=== PATIENT | male | born 2000 | race Hispanic/Latino ===

== ENCOUNTER 2022-01-22 00:37 | Emergency (ER) | payer SELFPAY ==
[2022-01-22 01:28] LABS: Absolute Lymphocytes (CBC) 1.9 K/uL (0.7-4.9); Hematocrit 44.5 % (39.6-49.0); Lymphocytes % 15.2 % (15.3-44.8); MPV 9.2 fL (7.6-11.3)
[2022-01-22 01:43] LABS: Albumin 4.8 g/dL (3.4-5.0); Bilirubin Total 0.4 mg/dL (0.2-1.0); Potassium 3.9 mmol/L (3.5-5.1)
[2022-01-22] MEDS ORDERED: NA CHLORIDE 0.9% 1,000 ML ONE ×2 (01:56→02:13)
[2022-01-22 02:03] LABS: Urine Blood 3+ (Negative); Urine Glucose Negative (Negative); Urine Protein Trace (Negative); Urine Specific Gravity >=1.030 (1.005-1.030)
--- NOTE | 2022-01-22 02:08 | ER ---
Nurse's Notes [facility] Name: Isrrael Childs Age: 21 yrs Sex: Male : 2000 Arrival Date: 01/22/2022 Time: 00:41 Bed 6 Private MD: Diagnosis: Calculus of kidney with calculus of ureter-passed Presentation: 01/22 01:14 Chief complaint: Patient states: RLQ abdominal pain started last night around 2210 with ke1 N/V. Coronavirus screen: Vaccine status: Patient reports being unvaccinated. Ebola Screen: No symptoms or risks identified at this time. Initial Sepsis Screen: Does the patient meet any 2 criteria?. Risk Assessment: Do you want to hurt yourself or someone else? Patient reports no desire to harm self or others. Onset of symptoms was January 21, 2022 at 22:10. 01:14 Method Of Arrival: Ambulatory [facility] 01:14 Acuity: DWAIN 3 ke1 01:16 Initial Sepsis Screen: Does the patient meet any 2 criteria? No. Patient's initial ke1 sepsis screen is negative. Does the patient have a suspected source of infection? No. Patient's initial sepsis screen is negative. Triage Assessment: 01:17 General: Appears uncomfortable, Behavior is appropriate for age. Pain: Complains of ke1 pain in RLQ Pain does not radiate. Pain currently is 7 out of 10 on a pain scale. at worst was 9 out of 10 on a pain scale. level that patient reports is acceptable is 5 out of 10 on a pain scale. Quality of pain is described as aching, Is intermittent. 01:19 GI: Abdomen is flat, non-distended, Bowel sounds present X 4 quads. Reports lower ke1 abdominal pain, nausea. Historical: - Allergies: 01:16 No Known Allergies; ke1 - PMHx: 01:16 None; ke1 - PSHx: 01:16 None; ke1 - Immunization history:: Flu vaccine is not up to date. It has been more than one year since last vaccine. - Social history:: Smoking status: Reported history of juuling and/or vaping. - Family history:: not pertinent. Screenin:20 Abuse screen: Denies threats or abuse. Nutritional screening: No deficits noted. ke1 Tuberculosis screening: No symptoms or risk factors identified. Fall Risk None identified. Assessment: 01:21 GI: Abd is soft Abdomen is tender to palpation in right lower quadrant. ke1 Vital Signs: 01:14 Resp 18; Temp 99.7(O); Weight 78.47 kg; Height 5 ft. 9 in. (175.26 cm); Pain 7/10; ke1 01:16 BP 116 / 73; Pulse 73; Pulse Ox 100% on R/A; ke1 03:08 BP 104 / 67; Pulse 72; Resp 16; Pulse Ox 99% on R/A; kd3 01:14 Body Mass Index 25.55 (78.47 kg, 175.26 cm) ke1 ED Course: 00:41 Patient arrived in ED. kz 00:45 Bo Hernandez MD is Attending Physician. [facility] 01:16 Triage completed. ke1 01:21 Patient has correct armband on for positive identification. Call light in reach. ke1 01:21 Arm band placed on. ke1 01:23 Carlotta Joiner, KEVIN is Primary Nurse. ke1 01:23 Inserted saline lock: 18 gauge in right antecubital area, using aseptic technique. mw1 02:06 Eren Holbrook MD is Hospitalizing Provider. [facility] 02:37 COVID-19 SARS RT PCR (Document "Date of Onset" if Symptomatic) Sent. ke1 03:59 Eren Holbrook MD is Referral Physician. andres Administered Medications: 01:54 Drug: NS 0.9% 1000 ml Route: IV; Rate: 1 bolus; Site: right antecubital; ke1 03:15 Follow up: Response: No adverse reaction kd3 02:23 Drug: NS 0.9% 1000 ml Route: IV; Rate: 125 ml/hr; Site: right antecubital; ke1 03:14 Follow up: Response: No adverse reaction kd3 02:23 Drug: morphine 2 mg Route: IVP; Site: right antecubital; ke1 03:14 Follow up: Response: No adverse reaction kd3 02:23 Drug: Zofran (Ondansetron) 4 mg Route: IVP; Site: right antecubital; ke1 03:14 Follow up: Response: No adverse reaction kd3 02:24 Drug: Zosyn (piperacillin-tazobactam) 3.375 grams Route: IVPB; Infused Over: 60 mins; ke1 Site: right antecubital; 03:15 Follow up: Response: No adverse reaction kd3 Medication: 03:09 VIS not applicable for this client. kd3 Outcome: 02:07 Decision to Hospitalize by Provider. [facility] 04:00 Discharge ordered by . andres 05:10 Patient left the ED. ke1 Signatures: Bo Hernandez MD MD cha Waits, Michael mw1 Cindy Ratliff RN RN kd3 Carlotta Joiner RN RN ke1 Josephine Ramirez
--- NOTE | 2022-01-22 02:08 | EDPHYS ---
Physician Documentation [facility] Name: Isrrael Childs Age: 21 yrs Sex: Male : 2000 Arrival Date: 01/22/2022 Time: 00:41 Bed 6 Private MD: ED Physician Bo Hernandez HPI: 01/22 01:58 This 21 yrs old Male presents to ER via Ambulatory with complaints of andres Abdominal Pain - Right lower. 01:58 The patient presents with abdominal pain right lower quadrant. Onset: The andres symptoms/episode began/occurred 2 day(s) ago. The symptoms do not radiate. Associated signs and symptoms: none. The symptoms are described as crampy. Modifying factors: The symptoms are alleviated by remaining still, the symptoms are aggravated by pressure, touching the area. Severity of pain: At its worst the pain was mild in the emergency department the pain is unchanged. The patient has not experienced similar symptoms in the past. Historical: - Allergies: 01:16 No Known Allergies; ke1 - PMHx: 01:16 None; ke1 - PSHx: 01:16 None; ke1 - Immunization history:: Flu vaccine is not up to date. It has been more than one year since last vaccine. - Social history:: Smoking status: Reported history of juuling and/or vaping. - Family history:: not pertinent. ROS: 01:58 Constitutional: Negative for fever, chills, and weight loss, Eyes: Negative for injury, andres pain, redness, and discharge, ENT: Negative for injury, pain, and discharge, Neck: Negative for injury, pain, and swelling, Cardiovascular: Negative for chest pain, palpitations, and edema, Respiratory: Negative for shortness of breath, cough, wheezing, and pleuritic chest pain, Back: Negative for injury and pain, : Negative for injury, bleeding, discharge, and swelling, MS/Extremity: Negative for injury and deformity, Skin: Negative for injury, rash, and discoloration, Neuro: Negative for headache, weakness, numbness, tingling, and seizure, Psych: Negative for depression, anxiety, suicide ideation, homicidal ideation, and hallucinations, Allergy/Immunology: Negative for hives, rash, and allergies, Endocrine: Negative for neck swelling, polydipsia, polyuria, polyphagia, and marked weight changes, Hematologic/Lymphatic: Negative for swollen nodes, abnormal bleeding, and unusual bruising. 01:58 Abdomen/GI: Positive for abdominal pain, abdominal cramps, of the right lower quadrant. Exam: 01:58 Constitutional: This is a well developed, well nourished patient who is awake, alert, andres and in no acute distress. Head/Face: Normocephalic, atraumatic. Eyes: Pupils equal round and reactive to light, extra-ocular motions intact. Lids and lashes normal. Conjunctiva and sclera are non-icteric and not injected. Cornea within normal limits. Periorbital areas with no swelling, redness, or edema. ENT: Nares patent. No nasal discharge, no septal abnormalities noted. Tympanic membranes are normal and external auditory canals are clear. Oropharynx with no redness, swelling, or masses, exudates, or evidence of obstruction, uvula midline. Mucous membranes moist. Neck: Trachea midline, no thyromegaly or masses palpated, and no cervical lymphadenopathy. Supple, full range of motion without nuchal rigidity, or vertebral point tenderness. No Meningismus. Chest/axilla: Normal chest wall appearance and motion. Nontender with no deformity. No lesions are appreciated. Cardiovascular: Regular rate and rhythm with a normal S1 and S2. No gallops, murmurs, or rubs. Normal PMI, no JVD. No pulse deficits. Respiratory: Lungs have equal breath sounds bilaterally, clear to auscultation and percussion. No rales, rhonchi or wheezes noted. No increased work of breathing, no retractions or nasal flaring. Back: No spinal tenderness. No costovertebral tenderness. Full range of motion. Male : Normal genitalia with no discharge or lesions. Skin: Warm, dry with normal turgor. Normal color with no rashes, no lesions, and no evidence of cellulitis. 01:58 Abdomen/GI: Inspection: abdomen appears normal, Bowel sounds: normal, Palpation: voluntary guarding, is elicited in the right lower quadrant, Indicators: McBurney's point is tender, Liver: no appreciated palpable abnormalities, Hernia: not appreciated. Vital Signs: 01:14 Resp 18; Temp 99.7(O); Weight 78.47 kg; Height 5 ft. 9 in. (175.26 cm); Pain 7/10; ke1 01:16 BP 116 / 73; Pulse 73; Pulse Ox 100% on R/A; ke1 03:08 BP 104 / 67; Pulse 72; Resp 16; Pulse Ox 99% on R/A; kd3 01:14 Body Mass Index 25.55 (78.47 kg, 175.26 cm) ke1 MDM: 00:45 [facility]. [facility] 01:58 Differential diagnosis: appendicitis, Cholelithiasis, diverticulitis, gastritis, andres non-specific abd pain, pancreatitis, Peptic Ulcer Disease, Pyelonephritis, Ureterolithiasis, urinary tract infection. Data reviewed: vital signs, nurses notes, lab test result(s), radiologic studies, CT scan. Counseling: I had a detailed discussion with the patient and/or guardian regarding: the historical points, exam findings, and any diagnostic results supporting the discharge/admit diagnosis, lab results. 01/22 01:08 Order name: CBC with Diff; Complete Time: 01:48 [facility] 01/22 01:08 Order name: CMP; Complete Time: 01:48 [facility] 01/22 01:08 Order name: Lipase; Complete Time: 01:48 01/22 02:04 Order name: Urine Dipstick-Ancillary; Complete Time: 03:36 EDMS 01/22 02:19 Order name: COVID-19 SARS RT PCR (Document "Date of Onset" if Symptomatic) 01/22 03:23 Order name: SARS-COV-2 RT PCR; Complete Time: 03:36 EDMS 01/22 01:08 Order name: IV Saline Lock; Complete Time: 01:26 [facility] 01/22 01:08 Order name: Labs collected and sent; Complete Time: 01:26 [facility] 01/22 01:48 Order name: CT Abd/Pelvis - IV Contrast Only andres 01/22 01:08 Order name: Urine Dipstick-Ancillary (obtain specimen); Complete Time: 02:02 tw Administered Medications: 01:54 Drug: NS 0.9% 1000 ml Route: IV; Rate: 1 bolus; Site: right antecubital; ke1 03:15 Follow up: Response: No adverse reaction kd3 02:23 Drug: NS 0.9% 1000 ml Route: IV; Rate: 125 ml/hr; Site: right antecubital; ke1 03:14 Follow up: Response: No adverse reaction kd3 02:23 Drug: morphine 2 mg Route: IVP; Site: right antecubital; ke1 03:14 Follow up: Response: No adverse reaction kd3 02:23 Drug: Zofran (Ondansetron) 4 mg Route: IVP; Site: right antecubital; ke1 03:14 Follow up: Response: No adverse reaction kd3 02:24 Drug: Zosyn (piperacillin-tazobactam) 3.375 grams Route: IVPB; Infused Over: 60 mins; ke1 Site: right antecubital; 03:15 Follow up: Response: No adverse reaction kd3 Disposition Summary: 01/22/22 04:00 Discharge Ordered Location: Home(01/22/22 04:00) andres Problem: new(01/22/22 04:00) andres Symptoms: have improved(01/22/22 04:00) andres Condition: Stable(01/22/22 04:00) andres Diagnosis - Calculus of kidney with calculus of ureter - passed andres Followup: andres - With: Private Physician - When: 2 - 3 days - Reason: Recheck today's complaints, Re-evaluation by your physician Followup: andres - With: Eren Holbrook MD - When: 1 - 2 days - Reason: Recheck today's complaints, Continuance of care, Re-evaluation by your physician Discharge Instructions: - Discharge Summary Sheet andres - Kidney Stones andres - Renal Colic andres - Renal Colic, [id number] andres - Kidney Stones, [id number] [facility] Forms: - Medication Reconciliation Form [facility] - Thank You Letter andres - Antibiotic Education [facility] - Prescription Opioid Use [facility] Prescriptions: - Cipro 500 mg Oral Tablet - take 1 tablet by ORAL route every 12 hours for 7 days; 14 tablet; Refills: 0, [facility] Product Selection Permitted - Tylenol-Codeine #3 300 mg-30 mg Oral - take 2 tablet by ORAL route every 6 hours; 20 tablet; Refills: 0, Product [facility] Selection Permitted - Flomax 0.4 mg Oral capsule - take 1 capsule by ORAL route once daily 1/2 hour following the same meal each sb3 day; 20 capsule; Refills: 0, Product Selection Permitted Signatures: Dispatcher [employer] Bo Ash MD MD cha Wood, Tiffany tw5 Carlotta Joiner RN RN ke1 Cindy Ratliff RN kd3 Corrections: (The following items were deleted from the chart) 03:36 02:07 Observation andres andres 03:36 02:07 Eren Holbrook andres andres 03:36 02:07 Telemetry/MedSurg (Inpatient) andres andres 03:36 02:07 Stable andres andres 03:36 02:07 new andres andres 03:36 02:07 have improved andres andres 03:36 02:07 Standard andres andres 03:36 02:07 andres andres 03:36 02:07 Abdominal tenderness andres andres 03:36 02:07 Acute appendicitis with localized peritonitis andres andres 03:36 02:07 Fever, unspecified andres andres 03:36 02:07 Elevated white blood cell count andres andres
[2022-01-22] MEDS ORDERED: MORPHINE 2 MG/ML SYR ONE (02:12)
[2022-01-22] MEDS ORDERED: ONDANSETRON 4 MG/2 ML VIAL ONE (02:12)
[2022-01-22] MEDS ORDERED: PIPERACIL/TAZO 3.375 GM VIAL IV ONE (02:13)
[2022-01-22] MEDS ORDERED: NA CHLORIDE 0.9% 100 ML IV ONE (02:14)
[2022-01-22 05:23] VITALS: TEMP 99.7
[2022-01-22 05:28] VITALS: BP 104/67; O2SAT 99
--- NOTE | 2022-01-23 10:19 | RAD REPORT ---
EXAM DESCRIPTION: CT - Abdomen Pelvis W Contrast - 01/22/2022 5:52 am CLINICAL HISTORY: RLQ abdominal pain COMPARISON: None Available. TECHNIQUE: CT of the abdomen and pelvis performed following IV administration of iodinated contras t. This exam was performed according to our departmental dose-optimization program, which includes au tomated exposure control, adjustment of the mA and/or kV according to patient size and/or use of iter ative reconstruction technique. FINDINGS: Lung Bases: The visualized lung bases are clear. Bones: No destructive bone lesions identified. Abdomen: Liver: The liver has normal size and density. No intrahepatic biliary dilatation. Gallbladder: No calcified gallstones. Spleen, Pancreas, and Adrenal Glands: The spleen, pancreas, and adrenal glands are unremarkable. Kidneys: No hydronephrosis or obstructing calculus. Vasculature: The aorta and IVC have normal caliber and position. The portal vein is patent. The pro ximal visceral and renal arteries are patent. Stomach: The stomach and duodenum have normal course. Other: No free intraperitoneal air. No free fluid or lymphadenopathy. Pelvis: Bladder: Urinary bladder is unremarkable. Bowel: No dilated loops of large or small bowel. Appendix: Normal appendix. Pelvis: Prostate is mildly enlarged. IMPRESSION: 1. No acute inflammatory or obstructive process identified. Electronically signed by: Robin Bullock 01/22/2022 3:20 AM CDT Due to temporary technical issues with the PACS/Fluency reporting system, reports are being signed by the in house radiologist without review as a courtesy to ensure prompt reporting. The interpreting r adiologist is fully responsible for the content of the report.
== END 2022-01-22 05:10 | disposition home or self-care (01) ==
LOC: ER 00:37 → UNDOADMOB 02:11 → ERHOLD 02:11 → OBSVTOIN 07:43 → INTOOBSV 07:43 → UNDODISIN 01-23 16:31
DX: N20.2 Calculus of kidney with calculus of ureter (principal); Z20.822 Contact with and (suspected) exposure to COVID-19
CPT/HCPCS: 36415; 74177; 80053; 81003; 83690; 85025; 96374; 96375; 99283; G0378; J2270; J2405; J2543; J7030; Q9967; U0003